=== PATIENT | female | born 1990 | race Two or more races ===

== ENCOUNTER → 2021-07-26 | Emergency (ER) | payer SELFPAY ==
[~2021-07-26] VITALS: Ht 152.4 cm; Wt 50.8 kg
[~2021-07-26] MED LIST: IBUPROFEN 400 MG TABLET ONE; IBUPROFEN 400 MG TABLET PO ONE
[2021-07-26 02:34] VITALS: BP 109/63
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
--- NOTE | 2021-07-26 03:17 | NUR ---
Patient does not wish to proceed with medical care recommended by Dr. August. Patient given information related to possible complications, up to and including , which could occur as a result of leaving the hospital at this time. Patient verbalizes understanding of risks involved due to leaving against medical advice. Patient has signed AMA form.
== END | disposition left against medical advice (07) ==
LOC: ER 02:34
DX: M25.552 Pain in left hip (principal); W18.30XA Fall on same level, unspecified, initial encounter; Y93.89 Activity, other specified; Y92.89 Other specified places as the place of occurrence of the external cause; Y99.8 Other external cause status